=== PATIENT | male | born 1970 ===

== ENCOUNTER 2025-07-25 09:07 | Outpatient (AMB) | payer OTHER, SELFPAY ==
--- NOTE | 2025-07-25 08:50 | A.OFFPC_ITS ---
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 History of Present Illness The patient is a 54-year-old male presenting for a new patient visit to establish care and address hypertension management. Hypertension: The patient reports a history of hypertension with a recent blood pressure reading of 132/84 mmHg, which he acknowledges as elevated but not excessively high. He is currently prescribed lisinopril 40 mg and hydrochlorothiazide 25 mg, which are the only medications he takes. The patient has no history of surgeries and denies any other medical conditions. He has a history of smoking, which he has since quit over 11 years ago, and he does not consume alcohol. Preventative care: Colon cancer screening with stool test (Cologuard): The patient has not undergone a colonoscopy due to logistical challenges but is considering a stool-based DNA test (Cologuard) for colon cancer screening. He was informed that the test is effective for three years and involves collecting a sample at home and sending it back for analysis. The patient is responsible for caring for his mother, which limits his ability to arrange for a colonoscopy. Surgical History: - No history of surgeries Medications: - Lisinopril 40 mg for hypertension - Hydrochlorothiazide 25 mg for hyperten kaleb Social History: - Smoking: Former smoker, quit over 11 y ears ago - Alcohol: Does not consume alcohol - Caregiver: Responsible for caring for his mother Review of Systems - Cardiovascular: Reports elevated blood pressure. Denies chest pain or palpitations. - Respiratory: Denies snoring or waking up gasping for air. - Gastrointestinal: Denies issues with b owel movements or urination. 10-point ROS reviewed and negative excep t as noted in HPI Past Medical History - Hypertension Health Maintenance - Colon cancer screening with stool test (Cologuard) recommended Physical Exam General: Well-appearing, in no acute distress. Vital signs: Blood pressure recorded at 132/84, which is high but not very high. HEENT: Normocephalic, atraumatic. PERRLA, EOMI. Conjunctiva clear, sclera anicteric. Oropharynx clear, mucous membranes moist. TMs intact bilaterally. Neck: Supple, no lymphadenopathy, no thyromegaly, no JVD or carotid bruits. Cardiovascular: RRR, normal S1/S2, no murmurs, rubs, or gallops. Peripheral p ulses 2+ and symmetric. No edema. Respiratory: Lungs clear to auscultation bilaterally, no wheezes, rales, or rhonchi. Normal effort. Abdomen: Soft, non-tender, non-distended. Normoactive bowel sounds. No hepatosplenomegaly, no masses. MSK: Full range of motion, no joint swelling or deformity. Normal gait. Skin: Warm, dry, intact. No rashes, lesions, or pallor. Neuro: Alert and oriented x3. Cranial nerves II-XII intact. Strength 5/5 throughout. Sensation intact. Reflexes 2+ symmetric. Normal coordination and gait. Psych: Appropriate mood and affect. Normal judgment and insight. Plan 1. Hypertension - Continue current medications: lisinopr il 40 mg and hydrochlorothiazide 25 mg. - Monitor blood pressure regularly and f ollow up in two weeks to assess control. 2. Preventative Care: Colon Cancer Scree linda With Stool Test (Cologuard) - Proceed with Cologuard test for colon cancer screening. - Follow up on results and consider furt her evaluation if indicated. Discussion Notes I discussed with the patient the importance of managing hypertension and the role of his current medications in controlling blood pressure. We also reviewed the option of using Cologuard for colon cancer screening due to his logistical challenges in undergoing a colonoscopy. I advised him on the process of the Cologuard test and the follow-up steps if any abnormalities are detected. Patient Instructions - Continue taking lisinopril and hydroch lorothiazide as prescribed. - Monitor your blood pressure regularly at home. - Complete the Cologuard test as instruc leyda and send it back for analysis. - Follow up in two weeks for blood press ure assessment and test results discussion. Medical Decision Making The patient's hypertension is currently managed with lisinopril and hydroc hlorothiazide, which he is tolerating well. His blood pressure reading of 132/84 mmHg indicates the need for continued monitoring to ensure optimal control. Given his inability to undergo a colonoscopy, the Cologuard test was recommended as a feasible alternative for colon cancer screening. This approach allows for non-invasive screening while accommodating his caregiving responsibilities. Total time spent caring for the patient today was 30 minutes. This includes time spent before the visit reviewing the chart, time spent documenting, and time spent reviewing laboratory results, diagnostic imaging, medications, performing a medically necessary evaluation, counseling on diagnoses, care coordination, ordering appropriate tests, ordering appropriate medications. [facility] Medical History (Updated 07/25/25 @ 09:23 by Carlos Gordon MD) Overweight (BMI 25.0-29.9) Surgical History No pertinent past surgical history Family History Father Colon cancer Sister Diabetes Mother Diabetes Daughter No problems noted. Social History (Updated 07/25/25 @ 08:54 by Alvarez Espinoza MA) Housing: House Alcohol intake: current Alcohol intake frequency: does not drink Patient Tobacco Use Status: Never used Tobacco service: No Current occupational status: employed Cognitive needs: No Hearing needs: No Vision needs: Yes (rx glasses) Questionnaire Thrive Questionnaire Date Thrive assessed: 07/25/25 I am a: Patient What is your living situation today?: I have a steady place to live Within the past 12 months, did the food you bought not last and you didn't have the money to get more?: Never true Within the past 12 months, did you worry whether your food would run out before you got money to buy more?: Never true Do you have trouble paying for medicines?: No Do you have trouble getting transportation to medical appointments?: No Do you have trouble paying your heating and electricity bill?: No Do you have trouble taking care of your child, family member or friend?: No Do you have trouble with day-to-day activities such as bathing, preparing meals, shopping, managing finances, etc.?: No Are you currently unemployed and looking for a job?: No Are you interested in more education?: No THRIVE Score: 0 AUDIT C Alcohol Use Questionnaire (AUDIT-C) 1. How often do you have a drink containing alcohol?: Never 3. How often do you have six or more drinks on one occasion?: Never Total Score: 0 PIPER-7 AMB Questionnaire PIPER-7 Date PIPER - 7 assessed: 07/25/25 Source: Developed by Drs. Loki Huerta, Alana Eaton, Tarun Mccullough and colleagues, with an educational roopa from [employer]. Physical exam (Primary Care) BMI result Body Mass Index 27.8 Tobacco/Smoking Status: Tobacco use Status Tobacco use date assessed 07/25/25 07/25/25 08:54 Patient Tobacco Use Status Never used Tobacco 07/25/25 08:54 Thrive Assessment: Date of Thrive Assessment Date Thrive assessed 07/25/25 07/25/25 08:54 Coding Level of Care Code New Pt Level 4 (93928) Diagnoses Hypertension I10 Encounter for colorectal cancer screening Z12.11; Z12.12 Overweight (BMI 25.0-29.9) E66.3 History of smoking for less than 1 year Z87.891 Assessment & Plan Assessment & Plan (1) Hypertension: Code(s): I10 - Essential (primary) hypertension (2) Encounter for colorectal cancer screening: Code(s): Z12.11 - Encounter for screening for malignant neoplasm of colon; Z12.12 - Encounter for screening for malignant neoplasm of rectum (3) Overweight (BMI 25.0-29.9): Code(s): E66.3 - Overweight Category: Medical (4) History of smoking for less than 1 year: Code(s): Z87.891 - Personal history of nicotine dependence Plan Orders: Orders Hemoglobin A1c Today Z13.9 - Encounter for screening, unspecified Hepatitis B Surface Antibody Today Z13.9 - Encounter for screening, unspecified Hepatitis C Antibody Today Z13.9 - Encounter for screening, unspecified HIV Ab/Ag Today Z13.9 - Encounter for screening, unspecified Lipid Panel Today Z13.9 - Encounter for screening, unspecified TSH reflex Free T4 Today Z13.9 - Encounter for screening, unspecified Vitamin D 1,25 dihydroxy Today Z13.9 - Encounter for screening, unspecified Vitamin B12 and Folate Today Z13.9 - Encounter for screening, unspecified Complete Blood Count Auto Diff Today Z13.9 - Encounter for screening, unspecified Comprehensive Met. Panel Today Z13.9 - Encounter for screening, unspecified Hepatitis B Surface Antigen Today Z13.9 - Encounter for screening, unspecified Magnesium Today Z13.9 - Encounter for screening, unspecified Microalbumin, Random (w Creat) Today Z13.9 - Encounter for screening, unspecified UA CC w/rflx Micro + Cult Today Z13.9 - Encounter for screening, unspecified Referrals Cologuard Test Z12.11 - Encounter for screening for malignant neoplasm of colon, Z12.12 - Encounter for screening for malignant neoplasm of rectum Medications: Refilled hydrochlorothiazide 25 mg PO DAILY 90 tabs 0RF 90 days lisinopril 40 mg PO DAILY 90 tabs 0RF 90 days
[2025-07-25 09:14] VITALS: BP 132/84; PULSE 78; RESP 16; TEMP 36.8; O2SAT 96; BMI 27.8
== END 2025-07-25 09:39 | disposition home or self-care (01) ==
LOC: HO.HMCFMS 09:08
PROVIDERS: Visit Provider Student in an Organized Health Care Education/Training Program
DX: I10 Essential (primary) hypertension (principal); Z12.11 Encounter for screening for malignant neoplasm of colon; Z12.12 Encounter for screening for malignant neoplasm of rectum; E66.3 Overweight; Z87.891 Personal history of nicotine dependence

== ENCOUNTER 2025-07-25 09:07 | Outpatient (REF) | payer OTHER, SELFPAY ==
[2025-07-25 13:09] LABS: MANUAL DIFF FLAG NO
[2025-07-25 13:13] LABS: Hematocrit 47.6 % (42.0-52.0); Hemoglobin 15.5 g/dl (14.0-18.0); Imm Gran Abs Auto 0.02 X10*3/uL (0.00-0.03); Imm Gran Pct Auto 0.3 % (0.0-0.4); Lymphocytes Absolute Auto 2.0 X10*3/uL (1.2-4.9); Mean Corpuscular HGB Conc 32.6 g/dl (31.0-36.0); Mean Corpuscular Hemoglobin 28.6 pg (27.0-33.0); Mean Corpuscular Volume 87.8 fL (80.0-98.0); NRBC Abs Auto 0.000 X10*3/uL (0.0-0.012); NRBC Pct Auto 0.0 /100WBC (0.0-0.2); Platelet Count 224 X10*3/uL (160-400); Red Blood Count 5.42 X10*6/uL (4.60-5.80); White Blood Count 5.8 X10*3/uL (4.8-10.8)
[2025-07-25 13:20] LABS: Appearance Urine Turbid; Glucose Urine UA Negative (Negative); PH 5.5 (5.0-9.0); Specific Gravity - Urine >= 1.030 (1.005-1.025)
[2025-07-25 13:49] LABS: Alanine Aminotransferase 29 U/L (0-40); Albumin Level 4.8 g/dL (3.5-5.0); Alkaline Phosphatase 92 U/L (39-117); Anion Gap 12 (12-20); Aspartate Amino Transferase 29 U/L (5-37); Blood Urea Nitrogen 15 mg/dL (9-16); Calcium 9.3 mg/dL (8.4-10.2); Carbon Dioxide 29 mmol/L (22-29); Chloride 104 mmol/L (96-108); Cholesterol 182 mg/dL (<200); Estimated Glomerular Filt Rate > 60; HDL Cholesterol 40 mg/dL (>40); Magnesium 2.2 mg/dL (1.6-2.6); Potassium 4.0 mmol/L (3.3-5.1); Sodium 141 mmol/L (135-145); Total Protein 7.5 g/dL (6.5-8.0); Triglycerides 118 mg/dL (<150)
[2025-07-25 14:00] LABS: Folate 14.1 ng/mL (> or = 4.0); Vitamin B12 356 pg/mL (200-900)
[2025-07-25 14:10] LABS: Microalbum/Creatinine Ratio Ur 3.3 ug/mg cr (<30)
[2025-07-26 13:04] LABS: HBS Num1 10.53 mIU/mL (0-7.99); ~HepC Num1 0.11 S/CO (0.00-0.79)
[2025-07-26 13:05] LABS: HBsAGNum1 0.47 S/CO (0.00-0.99); HIV Num 1 0.06 S/CO (0.00-0.99); Hepatitis B Surface Antigen Negative (Negative); ~Hepatitis C Antibody Nonreactive (Nonreactive)
[2025-07-26 14:31] LABS: HBS Num2 10.81 mIU/mL (0-7.99)
[2025-07-26 14:32] LABS: HBS Num3 11.03 mIU/mL (0-7.99); ~Hepatitis B Surface Antibody GRAYZONE (Nonreactive)
[2025-07-30 06:09] LABS: VITAMIN D (1,25 OH) D3 71 pg/mL; Vit D (1,25-Dihydroxy) Total 71 pg/mL (18-72); Vitamin D (1,25 OH) D2 <8 pg/mL
== END 2025-07-25 09:08 | disposition home or self-care (01) ==
LOC: HO.HKASLDS 09:07
PROVIDERS: PCP Student in an Organized Health Care Education/Training Program; Visit Provider Student in an Organized Health Care Education/Training Program
DX: I10 Essential (primary) hypertension (principal); E66.3 Overweight; Z13.1 Encounter for screening for diabetes mellitus; Z68.27 Body mass index [BMI] 27.0-27.9, adult; Z87.891 Personal history of nicotine dependence
CPT/HCPCS: 36415; 80053; 80061; 81003; 82043; 82570; 82607; 82652; 82746; 83036; 83735; 84443; 85025; 86706; 86803; 87340; 87389; 96127

== ENCOUNTER 2025-08-09 11:46 | Outpatient (AMB) | payer OTHER, SELFPAY ==
[2025-08-09 11:54] VITALS: BP 133/74; PULSE 76; RESP 16; TEMP 36.9; O2SAT 96; BMI 27.5
--- NOTE | 2025-08-09 11:54 | A.OFFPC_ITS ---
Vital Signs 08/09/25 11:54 Height 5 ft 6.93 in Weight 175 lb 6 oz BMI 27.5 BP 133/74 Blood Pressure Location Rt brachial Position Sitting Respiration 16 Pulse 76 Pulse Source Pulse Oximeter Temp 98.5 F Temp Source Oral Pulse Oximetry (%) 96 Oxygen Delivery Method Room Air Intake Visit Reasons: 2 wk f/u Allergies No Known Allergies Allergy (Verified 07/25/25 08:50) Medication List - Last Reconciled 08/09/25 by Carlos Gordon MD hydrochlorothiazide 25 mg PO DAILY 90 days lisinopril 40 mg PO DAILY 90 days Tobacco use date assessed: 07/25/25 Dental Screening Dental Screen Date: 07/25/25 HPI HPI Comments History of Present Illness Details History of Present Illness The patient is a 54-year-old male presenting for a follow-up on labs. Hypertension: The patient is on lisinopril 40 mg and hydrochlorothiazide 25 mg for management of hypertension. Prediabetes: Recent lab work shows an A1c of 5.8, indicating prediabetes. Hyperlipidemia: The patient's recent lipid panel shows an elevated LDL of 190 and an HDL of 40, while triglycerides and total cholesterol are within normal range. Health Maintenance: The patient has recently submitted a Cologuard test for colon cancer screening and is awaiting results. Screening tests for hepatitis B, C, and HIV were negative. Medications: - Hydrochlorothiazide 25 mg for hyperten kaleb - Lisinopril 40 mg for hypertension Social History: - Lifestyle: Discussed lifestyle modific ations with nutrition and exercise. Diagnostic Results: - Labs: Recent laboratory results are as follows: - White blood cells, red blood cells, he moglobin, hematocrit, and platelets are within normal range. - Sodium, potassium, and chloride are in the normal range. - Renal function is within normal range. - A1c is 5.8. - Calcium and magnesium are normal. - Liver function is normal. - Triglycerides are within normal range. - Cholesterol is within normal range. - LDL is elevated at 190. - HDL is 40. - B12 and Vitamin D are within normal li mits. - Thyroid function is within normal limi ts. - Urine analysis is normal. - Hepatitis B, C, and HIV tests are nega tive. - Tests and Diagnostics: - Cologuard: Sent out yesterday; results are pending and expected within a week. Past Medical History - Hypertension, managed with medication. - Prediabetes, based on recent A1c of 5. 8. - Hyperlipidemia, based on recent LDL of 190. Health Maintenance - Patient sent out a Cologuard test for colon cancer screening and is awaiting results. [facility] Medical History (Updated 08/09/25 @ 12:24 by Carlos Gordon MD) Hyperlipidemia Hypertension Overweight (BMI 25.0-29.9) Surgical History No pertinent past surgical history Family History Father Colon cancer Sister Diabetes Mother Diabetes Daughter No problems noted. Social History Housing: House Alcohol intake: current Alcohol intake frequency: does not drink Patient Tobacco Use Status: Never used Tobacco service: No Current occupational status: employed Cognitive needs: No Hearing needs: No Vision needs: Yes (rx glasses) Questionnaire Thrive Questionnaire Date Thrive assessed: 07/25/25 PIPER-7 AMB Questionnaire PIPER-7 Date PIPER - 7 assessed: 07/25/25 Source: Developed by Drs. Loki Huerta, Alana Eaton, Tarun Mccullough and colleagues, with an educational roopa from [employer]. Review of Systems Narrative Review of Systems - Not assessed. 10-point ROS reviewed and negative except as noted in HPI Physical exam (Primary Care) Vital Signs: Last Vital Signs Temp 98.5 F 08/09/25 11:54 Pulse 76 08/09/25 11:54 Resp 16 08/09/25 11:54 BP 133/74 08/09/25 11:54 Pulse Ox 96 08/09/25 11:54 Oxygen Delivery Method Room Air 08/09/25 11:54 BMI result Body Mass Index 27.5 Tobacco/Smoking Status: Tobacco use Status Tobacco use date assessed 07/25/25 08/09/25 11:55 Patient Tobacco Use Status Never used Tobacco 08/09/25 11:55 Thrive Assessment: Date of Thrive Assessment Date Thrive assessed 07/25/25 08/09/25 11:55 Narrative Physical Exam General: Well-appearing, in no acute distress. Vital signs: Blood pressure is 133/74. HEENT: Normocephalic, atraumatic. PERRLA, EOMI. Conjunctiva clear, sclera anicteric. Oropharynx clear, mucous membranes moist. TMs intact bilaterally. Neck: Supple, no lymphadenopathy, no thyromegaly, no JVD or carotid bruits. Cardiovascular: RRR, normal S1/S2, no murmurs, rubs, or gallops. Peripheral pulses 2+ and symmetric. No edema. Respiratory: Lungs clear to auscultation bilaterally, no wheezes, rales, or rhonchi. Normal effort. Abdomen: Soft, non-tender, non-distended. Normoactive bowel sounds. No hepatosplenomegaly, no masses. MSK: Full range of motion, no joint swelling or deformity. Normal gait. Skin: Warm, dry, intact. No rashes, lesions, or pallor. Neuro: Alert and oriented x3. Cranial nerves II-XII intact. Strength 5/5 throughout. Sensation intact. Reflexes 2+ symmetric. Normal coordination and gait. Psych: Appropriate mood and affect. Normal judgment and insight. Coding Level of Care Code Est Pt Level 3 (74597) Diagnoses Hypertension I10 Hyperlipidemia E78.5 Overweight (BMI 25.0-29.9) E66.3 Assessment & Plan Assessment & Plan (1) Hypertension: Code(s): I10 - Essential (primary) hypertension Category: Medical (2) Hyperlipidemia: Code(s): E78.5 - Hyperlipidemia, unspecified Category: Medical (3) Overweight (BMI 25.0-29.9): Code(s): E66.3 - Overweight Category: Medical Plan Consent The patient agreed to repeat laboratory tests in three months. Patient was informed and verbally consented to the use of an ambient scribe for clinic note documentation during this visit. Plan 1. Hypertension - Blood pressure is 133/74. Continue current medications, lisinopril 40 mg and hydrochlorothiazide 25 mg. - Repeat labs in three months to monitor electrolytes and renal function while on these medications. 2. Prediabetes - The patient's A1c is 5.8, indicating prediabetes. - Provided education on lifestyle management. - Repeat labs in three months to re-evaluate A1c. 3. Hyperlipidemia - LDL is elevated at 190, with a goal of being below 100. - HDL is 40; discussed strategies to elevate it for protective benefits. - Discussed lifestyle modifications with nutrition and exercise to manage cholesterol levels. - Repeat lipid panel in three months. Discussion Notes I reviewed the patient's recent lab results with him. His CBC, metabolic panel, renal function, liver function, thyroid, B12, and vitamin D were all within normal limits. I informed him that his A1c was 5.8, which is in the prediabetic range, and his LDL cholesterol was elevated at 190, well above the goal of under 100. I provided education on lifestyle modifications, including nutrition and exercise, to address both the prediabetes and hyperlipidemia. I also noted his HDL is 40 and we discussed elevating it for cardiac protection. We will repeat labs in three months to monitor these values and to check his renal function and electrolytes given his use of lisinopril and hydrochlorothiazide. The patient agreed with this plan. I noted that his screenings for hepatitis B, C, and HIV were negative. He also informed me that he sent out his Cologuard test for colon cancer screening yesterday and expects results within a week. Patient Instructions - Continue taking your blood pressure medications, lisinopril 40 mg and hydrochlorothiazide 25 mg, as prescribed. - Your A1c level of 5.8 indicates you have prediabetes, and your LDL ( bad ) cholesterol is high at 190. - It is important to make lifestyle changes, including improving your diet and increasing your physical activity, to help manage these conditions. - You will need to have follow-up lab tests in three months to check on your progress. - You should receive the results of your Cologuard screening test within a week. Medical Decision Making The patient is a 54-year-old male who presented for a follow-up on lab results. His blood pressure is reasonably controlled at 133/74 on his current regimen of lisinopril and hydrochlorothiazide. Melendez findings from his labs are an A1c of 5.8, establishing a diagnosis of prediabetes, and an LDL of 190, indicating hyperlipidemia. Given that these are new findings, the initial management approach is focused on therapeutic lifestyle changes. I provided education on nutrition and exercise to address both conditions. A follow-up in three months with repeat labs is appropriate to assess the patient's response to these modifications and to monitor his renal function and electrolytes due to his antihypertensive medications. The patient is compliant with health maintenance, having recently completed his Cologuard screening. Total time spent caring for the patient today was 20 minutes. This includes time spent before the visit reviewing the chart, time spent documenting, and time spent reviewing laboratory results, diagnostic imaging, medications, performing a medically necessary evaluation, counseling on diagnoses, care coordination
== END 2025-08-09 12:16 | disposition home or self-care (01) ==
LOC: HO.HMCFMS 11:46
PROVIDERS: PCP Student in an Organized Health Care Education/Training Program; Visit Provider Student in an Organized Health Care Education/Training Program
DX: I10 Essential (primary) hypertension (principal); E78.5 Hyperlipidemia, unspecified; E66.3 Overweight